=== PATIENT | male | born 1990 | race Caucasian/White ===

== ENCOUNTER → 2023-10-30 08:54 | Outpatient (REF) | payer MEDICARE, OTHER, MEDICAID, SELFPAY ==
[2023-10-30 10:05] VITALS: BP 137/98; BP_SYST 79
[2023-10-30 11:12] VITALS: BP 121/74
== END ==
LOC: RADI 08:54
PROVIDERS: ATTENDING PHYSICIAN Radiology Diagnostic Radiology
DX: Z43.1 Encounter for attention to gastrostomy (principal)
CPT/HCPCS: 49452; C1729; C1769

== ENCOUNTER → 2023-12-30 11:18 | Outpatient (REF) | payer MEDICARE, OTHER, MEDICAID, SELFPAY ==
[2023-12-30 11:58] LABS: Urine Albumin Negative (Neg - Trace); Urine Bilirubin Negative (Negative); Urine Character Slightly Cloudy (Clear); Urine Color Yellow; Urine Glucose Negative (Negative); Urine Ketone Negative (Negative); Urine Leukocyte 2+ (Negative); Urine Nitrite Negative (Negative); Urine Occult Blood Negative (Negative); Urine Specific Gravity 1.015 (<1.030); Urine Urobilinogen Negative (Neg - 1+)
[2023-12-30 12:07] LABS: Urine Mucus Few; Urine Red Blood Cell None Seen /HPF (0-2); Urine Triple Phosphate Crystal Present; Urine White Cell 0-2 /HPF (0-5)
== END ==
LOC: REG 11:18
PROVIDERS: ATTENDING PHYSICIAN Family Medicine
DX: R50.9 Fever, unspecified (principal)
CPT/HCPCS: 81003; 81015; 87086

== ENCOUNTER → 2024-06-02 11:16 | Outpatient (REF) | payer MEDICARE, OTHER, MEDICAID, SELFPAY | LOC: RADI 11:16 | PROVIDERS: ATTENDING PHYSICIAN Radiology Vascular & Interventional Radiology | DX: Z43.1 Encounter for attention to gastrostomy (principal) | CPT/HCPCS: 49452; C1769 ==

== ENCOUNTER → 2024-07-07 12:16 | Outpatient (REF) | payer MEDICARE, OTHER, MEDICAID, SELFPAY | LOC: RAD 12:16 | PROVIDERS: ATTENDING PHYSICIAN Family Medicine; REFERRING PHYSICIAN Internal Medicine Gastroenterology | DX: R74.8 Abnormal levels of other serum enzymes (principal) | CPT/HCPCS: 76700 ==

== ENCOUNTER 2024-11-11 22:10 | Inpatient (IN) | payer MEDICARE, OTHER, MEDICAID, SELFPAY ==
[2024-11-11] VITALS (7 sets, daily range): BP systolic 111–131; BP diastolic 60–83
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
[2024-11-11] MEDS: NSS 500 IV (19:32)
[2024-11-11 19:43] LABS: % Basophils 0.2 % (0-2); % Eosinophils 0.4 % (0-6); % Immature Granulocytes 0.4 % (0-0.5); % Lymphocytes 11.4 % (20.5-51.1); % Monocytes 7.8 % (1.7-9.3); % Neutrophils 79.8 % (42.2-75.2); Absolute Eosinophils 0.1 10^3/uL (0-0.7); Absolute Immature Granulocytes 0.1 10^3/uL (0-0.05); Absolute Lymphocytes 1.6 10^3/uL (1.2-3.4); Absolute Monocytes 1.1 10^3/uL (0.1-0.6); Hematocrit 50.1 % (39.0-52.0); Hemoglobin 16.3 g/dL (13.0-18.0); Mean Corp Hgb Conc. 32.5 g/dL (33.0-37.0); Mean Corpuscular Hgb 29.4 pg (27.0-31.0); Mean Corpuscular Volume 90.4 fL (80.0-94.0); Mean Platelet Volume 9.1 fL (7.4-10.4); Nucleated Red Blood Cells % 0 % (-); Platelet Count 228 10^3/uL (130-400); Red Blood Cell Count 5.54 10^6/uL (4.70-6.10); Red Cell Dist. Width 13.3 % (11.5-14.5); White Blood Cell Count 13.7 10^3/uL (4.8-10.8)
[2024-11-11 19:59] LABS: APTT 30.3 Sec (23.4-35.0); INR 0.98; PT 13.5 Sec (11.4-14.6)
[2024-11-11 20:00] LABS: COVID-19 Antigen Negative (Negative)
[2024-11-11 20:03] LABS: ALT (SGPT) 78 U/L (0-50); AST (SGOT) 44 U/L (17-59); Albumin 4.8 g/dl (3.5-5.0); Alkaline Phosphatase 105 U/L (38-126); Blood Urea Nitrogen 17 mg/dl (9-20); Calcium 9.4 mg/dl (8.4-10.2); Carbon Dioxide 25 mmol/L (22-30); Chloride 102 mmol/L (98-107); Glucose 85 mg/dl (70-99); Potassium 4.3 mmol/L (3.5-5.1); Sodium 139 mmol/L (135-145); Total Bilirubin 0.6 mg/dl (0.2-1.3); Total Protein 7.5 g/dl (6.3-8.2); eGFR > 60.00
[2024-11-11] MEDS: ROCEPHIN 1000 MG IV (21:22)
[2024-11-11] MEDS: TYLENOL/FEVERALL 650 MG RECTAL (21:38)
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
[2024-11-11] MEDS: VIBRAMYCIN 260 MG IV (21:42)
[2024-11-11 22:23] LABS: Procalcitonin < 0.05 ng/ml (0.0-0.25)
[2024-11-12] VITALS (22 sets, daily range): BP systolic 101–129; BP diastolic 56–87; BMI 24.8
[2024-11-12] MEDS: MYLICON DROPS 40 MG TUBE ×5 (01:03→22:31)
[2024-11-12] MEDS: MYLICON DROPS 60 MG TUBE ×8 (01:07→22:31)
[2024-11-12] MEDS: NON-FORMULARY ITEM 100 MG TUBE ×2 (01:08→14:15)
[2024-11-12] MEDS: XOPENEX 1.25 MG INHALANT SOLUTION INH (01:34)
[2024-11-12] MEDS: OFIRMEV 100 IV ×4 (01:52→22:28)
[2024-11-12] MEDS: ZOSYN 50 IV ×4 (04:23→22:43)
[2024-11-12] MEDS: VIMPAT 100 MG PO ×2 (04:24→19:47)
[2024-11-12] MEDS: NON-FORMULARY ITEM 200 MG TUBE ×2 (06:10→19:47)
[2024-11-12] MEDS: PREVACID 30 MG TUBE ×2 (06:14→19:48)
[2024-11-12 06:23] LABS: Hematocrit 43.7 % (39.0-52.0); Hemoglobin 14.8 g/dL (13.0-18.0); Mean Corp Hgb Conc. 33.9 g/dL (33.0-37.0); Mean Corpuscular Hgb 29.8 pg (27.0-31.0); Mean Corpuscular Volume 87.9 fL (80.0-94.0); Mean Platelet Volume 9.6 fL (7.4-10.4); Platelet Count 198 10^3/uL (130-400); Red Blood Cell Count 4.97 10^6/uL (4.70-6.10); Red Cell Dist. Width 13.7 % (11.5-14.5); White Blood Cell Count 15.2 10^3/uL (4.8-10.8)
[2024-11-12 07:00] LABS: ALT (SGPT) 57 U/L (0-50); AST (SGOT) 33 U/L (17-59); Albumin 4.3 g/dl (3.5-5.0); Alkaline Phosphatase 97 U/L (38-126); Blood Urea Nitrogen 17 mg/dl (9-20); Calcium 8.9 mg/dl (8.4-10.2); Carbon Dioxide 21 mmol/L (22-30); Chloride 104 mmol/L (98-107); Estimated Creatinine Clearance > 125 ml/min; Glucose 97 mg/dl (70-99); Potassium 3.5 mmol/L (3.5-5.1); Sodium 140 mmol/L (135-145); Total Bilirubin 0.9 mg/dl (0.2-1.3); Total Protein 6.6 g/dl (6.3-8.2); eGFR > 60.00
[2024-11-12] MEDS: NON-FORMULARY ITEM 250 MG TUBE ×2 (07:38→19:47)
[2024-11-12] MEDS: DAILY VITAMIN/CENTRUM 15 ML TUBE (07:38)
[2024-11-12] MEDS: VISBIOME 1 CAP TUBE (07:40)
[2024-11-12] MEDS: OSCAL 500 + D 500 MG TUBE (07:40)
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
[2024-11-12 09:35] LABS: Urine Albumin 3+ (Neg - Trace); Urine Bilirubin Negative (Negative); Urine Character Cloudy (Clear); Urine Color Yellow; Urine Glucose Negative (Negative); Urine Ketone Negative (Negative); Urine Leukocyte 3+ (Negative); Urine Nitrite Negative (Negative); Urine Occult Blood 1+ (Negative); Urine Urobilinogen Negative (Neg - 1+)
[2024-11-12 09:47] LABS: D-Dimer 0.37 ug/mlFEU (0.00-0.50)
[2024-11-12 10:32] LABS: Urine Bacteria Moderate (Negative); Urine White Cell 60-70 /HPF (0-5)
[2024-11-12 10:33] LABS: Urine Amorphous Seen
[2024-11-12 10:34] LABS: Urine Triple Phosphate Crystal Present
--- NOTE | 2024-11-12 10:42 | W.PN.UPDATE ---
Update Note
Progress Note Update
PVR 445 on bladder scan.
De Guzman will be ordered for acuter retention.
UA pending
[2024-11-12] MEDS: LR 1000 IV ×2 (11:01→20:05)
[2024-11-12] MEDS: DULCOLAX 10 MG RECTAL (15:38)
[2024-11-12] MEDS: OFIRMEV IV (19:46)
[2024-11-12] MEDS: ONFI 10 MG TUBE (19:48)
[2024-11-12] MEDS: LOVENOX 40 MG SC (19:48)
[2024-11-13] VITALS (12 sets, daily range): BP systolic 90–117; BP diastolic 50–73
[2024-11-13] MEDS: MYLICON DROPS 60 MG TUBE ×7 (00:32→20:00)
[2024-11-13] MEDS: NON-FORMULARY ITEM 100 MG TUBE ×2 (00:34→13:09)
--- NOTE | 2024-11-13 01:26 | PTCARENOTE ---
Patient transported to IMU by stretcher. ED RN gave report over the phone. Pt nonverbal. Pt appeared flushed and diaphoretic. Axillary temp 101.7, Tylenol administered see NOV. Pt having tremors b/l arms and legs. Mother bedside states 'this has
been a new thing the past few weeks'. NS/ST on tele. Pt remains on 9L MFNC SpO2 95%. Rhonchi, coarse, with scattered crackles of the lungs. Pt has a weak occasional moist cough. Oral suction to aid with management of secretions. Oral suction mouth
care kit used. CHG bath done. IV fluids cont. IV abx gtt. GJ tube irrigated as ordered, and redressed. VSS. Assessment and vitals as charted. Pt tolerating frequent turning and repositioning.
[2024-11-13] MEDS: LR 1000 IV ×3 (03:12→19:58)
[2024-11-13] MEDS: VIMPAT 100 MG PO ×2 (04:08→19:57)
[2024-11-13] MEDS: ZOSYN 50 IV ×4 (04:08→21:46)
[2024-11-13 05:23] LABS: % Basophils 0.3 % (0-2); % Eosinophils 0.2 % (0-6); % Immature Granulocytes 0.8 % (0-0.5); % Lymphocytes 14.2 % (20.5-51.1); % Monocytes 6.2 % (1.7-9.3); % Neutrophils 78.3 % (42.2-75.2); Absolute Basophils 0.1 10^3/uL (0-0.2); Absolute Immature Granulocytes 0.1 10^3/uL (0-0.05); Absolute Lymphocytes 2.4 10^3/uL (1.2-3.4); Absolute Monocytes 1.1 10^3/uL (0.1-0.6); Absolute Neutrophils 13.4 10^3/uL (1.4-6.5); Hematocrit 43.8 % (39.0-52.0); Hemoglobin 14.3 g/dL (13.0-18.0); Mean Corp Hgb Conc. 32.6 g/dL (33.0-37.0); Mean Corpuscular Hgb 29.5 pg (27.0-31.0); Mean Corpuscular Volume 90.5 fL (80.0-94.0); Mean Platelet Volume 9.8 fL (7.4-10.4); Nucleated Red Blood Cells % 0 % (-); Platelet Count 175 10^3/uL (130-400); Red Blood Cell Count 4.84 10^6/uL (4.70-6.10); Red Cell Dist. Width 14.2 % (11.5-14.5); White Blood Cell Count 17.2 10^3/uL (4.8-10.8)
[2024-11-13] MEDS: NON-FORMULARY ITEM 200 MG TUBE ×2 (05:26→17:43)
[2024-11-13] MEDS: PREVACID 30 MG TUBE ×2 (05:27→17:24)
[2024-11-13 05:41] LABS: Blood Urea Nitrogen 13 mg/dl (9-20); Calcium 8.6 mg/dl (8.4-10.2); Carbon Dioxide 25 mmol/L (22-30); Chloride 107 mmol/L (98-107); Estimated Creatinine Clearance > 125 ml/min; Glucose 78 mg/dl (70-99); Potassium 3.3 mmol/L (3.5-5.1); Sodium 140 mmol/L (135-145); eGFR > 60.00
[2024-11-13] MEDS: KCL ELIXIR 40 MEQ TUBE (06:33)
[2024-11-13] MEDS: NON-FORMULARY ITEM 250 MG TUBE ×2 (09:22→19:58)
[2024-11-13] MEDS: OSCAL 500 + D 500 MG TUBE (09:24)
[2024-11-13] MEDS: MYLICON DROPS TUBE ×2 (09:25→17:22)
[2024-11-13] MEDS: DAILY VITAMIN/CENTRUM 15 ML TUBE (09:26)
[2024-11-13] MEDS: VISBIOME 1 CAP TUBE (09:26)
[2024-11-13] MEDS: MYLICON DROPS 40 MG TUBE ×3 (13:10→21:47)
[2024-11-13] MEDS: DULCOLAX RECTAL (13:23)
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
[2024-11-13] MEDS: LOVENOX 40 MG SC (17:24)
--- NOTE | 2024-11-13 18:13 | PTCARENOTE ---
lactated rinhgers bolus ordered. discussed with hospitalist and not given as pts systolic bp has been above 100 throughout shift. christie output 1200mls for day shift. frequent mouth care provided with suction toothbrush. no seizure activity noted.
currently on 7 liters nasal o2 with sat 96. mother at bedside.
[2024-11-13] MEDS: ONFI 10 MG TUBE (19:53)
--- NOTE | 2024-11-13 23:31 | PTCARENOTE ---
Pt nonverbal, remains at baseline status. Pt running a low grade temperature. Pt bumped back up to 9L MFNC. Pt desatting to low 90s. Pt has a very weak cough. Oral suctioning as needed, pt had a moderate amount of nguyen white thick secretions. Oral
suction mouth care kit used. NS/ST on tele. IV fluids cont. IV abx cont. GJ tube irrigated as ordered. Meds via J tube. VSS. Assessment and vitals as charted. Pt tolerating frequent turning and repositioning.
[2024-11-14] VITALS (12 sets, daily range): BP systolic 93–118; BP diastolic 52–72; BMI 24.8
[2024-11-14] MEDS: MYLICON DROPS 60 MG TUBE ×8 (00:29→21:13)
[2024-11-14] MEDS: NON-FORMULARY ITEM 100 MG TUBE ×2 (00:30→12:23)
--- NOTE | 2024-11-14 01:30 | PTCARENOTE ---
While doing oral care this RN found build up brown mucus on roof of mouth, attempted to suction as much out as possible. Large amount of brown mucus suctioned from mouth. Pt able to cough up small amount of mucus.
[2024-11-14] MEDS: VIMPAT 100 MG PO ×2 (03:35→17:54)
[2024-11-14] MEDS: ZOSYN 50 IV ×4 (03:35→21:14)
[2024-11-14] MEDS: LR 1000 IV ×3 (04:07→17:48)
[2024-11-14 04:28] LABS: Hematocrit 38.7 % (39.0-52.0); Hemoglobin 12.5 g/dL (13.0-18.0); Mean Corp Hgb Conc. 32.3 g/dL (33.0-37.0); Mean Corpuscular Hgb 29.2 pg (27.0-31.0); Mean Corpuscular Volume 90.4 fL (80.0-94.0); Mean Platelet Volume 9.3 fL (7.4-10.4); Platelet Count 165 10^3/uL (130-400); Red Blood Cell Count 4.28 10^6/uL (4.70-6.10); Red Cell Dist. Width 14.2 % (11.5-14.5); White Blood Cell Count 11.4 10^3/uL (4.8-10.8)
[2024-11-14 04:56] LABS: ALT (SGPT) 35 U/L (0-50); AST (SGOT) 23 U/L (17-59); Albumin 3.1 g/dl (3.5-5.0); Alkaline Phosphatase 93 U/L (38-126); Blood Urea Nitrogen 7 mg/dl (9-20); Calcium 8.4 mg/dl (8.4-10.2); Carbon Dioxide 21 mmol/L (22-30); Chloride 107 mmol/L (98-107); Estimated Creatinine Clearance > 125 ml/min; Glucose 60 mg/dl (70-99); Potassium 3.3 mmol/L (3.5-5.1); Sodium 139 mmol/L (135-145); Total Bilirubin 0.8 mg/dl (0.2-1.3); Total Protein 5.4 g/dl (6.3-8.2); eGFR > 60.00
[2024-11-14] MEDS: NON-FORMULARY ITEM 200 MG TUBE ×2 (05:14→17:48)
[2024-11-14] MEDS: PREVACID 30 MG TUBE ×2 (05:17→17:50)
[2024-11-14] MEDS: KCL 270 MEQ IV (05:26)
[2024-11-14] MEDS: NON-FORMULARY ITEM 250 MG TUBE ×2 (07:19→19:05)
[2024-11-14] MEDS: VISBIOME 1 CAP TUBE (08:16)
[2024-11-14] MEDS: DAILY VITAMIN/CENTRUM 15 ML TUBE (08:16)
[2024-11-14] MEDS: OSCAL 500 + D 500 MG TUBE (08:16)
[2024-11-14] MEDS: MYLICON DROPS 40 MG TUBE ×4 (08:16→21:14)
--- NOTE | 2024-11-14 10:29 | CM ---
Patient with Hx Anoxic encephalopathy/functional quadriplegia, Cerebral palsy, Chronic dysphagia, GJ tube. O2 6L. Receiving IVF, IV Abx. Per nurse assessment; non-verbal.
Met with patient who was sleeping.
Spoke with patient's father Rd (cell [phone]);
the patient resides with his parents in a single level home w/ ramp to enter.
House is w/c accessible.
Patient is non-verbal and requires total care.
Patient has [facility] caregivers 7 days/week; some days 6-8 hrs/day, some days up to 10-12, some days overnight.
DME includes: hospital bed, wheelchair, siobhan lift, suction machine, pump for enteral feeds.
oxygen concentrator/portable tanks (tanks go up to 5L)- father doesn't know O2 provider.
[facility] in the past- father does not feel this needs to be resumed at d/c
Currently getting outpatient PT.
The patient is transported in the family van.
Plan watch for home O2 needs.
Plan home with resumption [facility] caregivers.
--- NOTE | 2024-11-14 11:29 | PTCARENOTE ---
Rec'd pt this AM. Discussed with Dr. Edwards pt has not TF orders. Radio Board Operator did see pt on 11/12. Sent TT and left voicemail at Radio Board Operator's office to inquire about starting tube feeding.
--- NOTE | 2024-11-14 14:12 | PTCARENOTE ---
Mother brought in home tube feeds. Placed in room. Family requesting vest therapy as pt utilizes this at home. RN notiifed Dr. Edwards
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
[2024-11-14] MEDS: DULCOLAX 10 MG RECTAL (15:11)
--- NOTE | 2024-11-14 16:55 | PTCARENOTE ---
Started pt's TF. slow with titration. Mom requests IVF continue until TF at goal. Notified Dr. Edwards. IVF re-ordered. Pt resting comfortable.
[2024-11-14] MEDS: LOVENOX 40 MG SC (17:49)
[2024-11-14] MEDS: ONFI 10 MG TUBE (17:50)
[2024-11-15] VITALS (13 sets, daily range): BP systolic 74–122; BP diastolic 27–73
[2024-11-15] MEDS: MYLICON DROPS 60 MG TUBE ×9 (00:54→21:45)
[2024-11-15] MEDS: NON-FORMULARY ITEM 100 MG TUBE ×2 (00:54→13:04)
--- NOTE | 2024-11-15 01:48 | PTCARENOTE ---
Pt nonverbal and remains at baseline neuro status, pt making infrequent noises. Pt on 6L NC SpO2 97% will continue to wean. RT bedside to place patient on the respiratory vest therapy. Oral suctioned moderate amounts of secretions. Pt able to cough
up small amount. Pt has a weak cough. Oral care done frequently. Complete bed bath and all linens changed. TF increased to 35ml/hr, pt seems to be tolerating. Pt had moderate formed BM. IVF cont. IV abx cont. NSR on tele. VSS. Afebrile. Pt
tolerating frequent turning and repositioning.
[2024-11-15] MEDS: ZOSYN 50 IV ×4 (04:32→21:35)
[2024-11-15] MEDS: VIMPAT 100 MG PO ×2 (04:38→17:59)
[2024-11-15 04:54] LABS: Hematocrit 40.6 % (39.0-52.0); Hemoglobin 13.5 g/dL (13.0-18.0); Mean Corp Hgb Conc. 33.3 g/dL (33.0-37.0); Mean Corpuscular Hgb 29.8 pg (27.0-31.0); Mean Corpuscular Volume 89.6 fL (80.0-94.0); Mean Platelet Volume 9.4 fL (7.4-10.4); Platelet Count 176 10^3/uL (130-400); Red Blood Cell Count 4.53 10^6/uL (4.70-6.10); Red Cell Dist. Width 14.2 % (11.5-14.5)
[2024-11-15 05:21] LABS: ALT (SGPT) 37 U/L (0-50); AST (SGOT) 24 U/L (17-59); Albumin 3.2 g/dl (3.5-5.0); Alkaline Phosphatase 97 U/L (38-126); Blood Urea Nitrogen 3 mg/dl (9-20); Calcium 8.7 mg/dl (8.4-10.2); Carbon Dioxide 24 mmol/L (22-30); Chloride 111 mmol/L (98-107); Estimated Creatinine Clearance > 125 ml/min; Glucose 121 mg/dl (70-99); Potassium 3.4 mmol/L (3.5-5.1); Sodium 142 mmol/L (135-145); Total Bilirubin 0.6 mg/dl (0.2-1.3); Total Protein 5.6 g/dl (6.3-8.2); eGFR > 60.00
[2024-11-15] MEDS: NON-FORMULARY ITEM 200 MG TUBE ×2 (05:58→17:55)
[2024-11-15] MEDS: PREVACID 30 MG TUBE ×2 (06:00→17:56)
[2024-11-15] MEDS: NON-FORMULARY ITEM 250 MG TUBE ×2 (06:19→18:00)
[2024-11-15] MEDS: LR 1000 IV ×2 (06:19→21:35)
[2024-11-15] MEDS: VISBIOME 1 CAP TUBE (08:03)
[2024-11-15] MEDS: DAILY VITAMIN/CENTRUM 15 ML TUBE (08:03)
[2024-11-15] MEDS: OSCAL 500 + D 500 MG TUBE (08:04)
[2024-11-15] MEDS: MYLICON DROPS 40 MG TUBE ×4 (08:05→21:36)
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
[2024-11-15] MEDS: KCL ELIXIR 40 MEQ TUBE (11:24)
[2024-11-15] MEDS: DULCOLAX 10 MG RECTAL (15:27)
--- NOTE | 2024-11-15 15:43 | PTCARENOTE ---
Recd pt this AM. Unable to void after christie removal this AM. Christie re-placed per order this afternoon. Mom and/or Dad at bedside throughout shift. Vital signs stable on 4L NC. Pt arousing more today. Appears comfortable
[2024-11-15] MEDS: XOPENEX 1.25 MG INHALANT SOLUTION INH (17:17)
[2024-11-15] MEDS: LOVENOX 40 MG SC (17:56)
[2024-11-15] MEDS: ONFI 10 MG TUBE (18:05)
--- NOTE | 2024-11-15 18:33 | PTCARENOTE ---
"Pt had a change in clinical presentation with desaturation on 4L to 88%, tachypnic with RR in 20s. Notified RT, vest therapy and neb treatment given with no improvement. Suction by RT resulted in minimal improvement. Notified Dr. Humphreys and "Darwin who is cross cover. stat chest X ray ordered, tube feeds to be held in case of aspiration. Pt now improved to 97% but remains on 8L NC. "
--- NOTE | 2024-11-15 23:33 | PTCARENOTE ---
Patient is nonverbal, contracted and bilateral foot drop. 6L mdflow, continuing to wean. tube feeds on hold. christie care given. LR running at 75. Mother at bedside. Assessment and vital signs as documented.
[2024-11-16] VITALS (11 sets, daily range): BP systolic 99–120; BP diastolic 55–77
[2024-11-16] MEDS: NON-FORMULARY ITEM 100 MG TUBE ×3 (00:36→23:52)
[2024-11-16] MEDS: MYLICON DROPS 60 MG TUBE ×8 (03:17→23:52)
[2024-11-16] MEDS: VIMPAT 100 MG PO (03:17)
[2024-11-16] MEDS: ZOSYN 50 IV ×4 (03:17→20:45)
[2024-11-16 05:25] LABS: % Basophils 0.7 % (0-2); % Eosinophils 2.4 % (0-6); % Immature Granulocytes 0.3 % (0-0.5); % Lymphocytes 38.5 % (20.5-51.1); % Neutrophils 47.1 % (42.2-75.2); Absolute Eosinophils 0.1 10^3/uL (0-0.7); Absolute Lymphocytes 2.2 10^3/uL (1.2-3.4); Absolute Monocytes 0.6 10^3/uL (0.1-0.6); Absolute Neutrophils 2.7 10^3/uL (1.4-6.5); Hematocrit 38.1 % (39.0-52.0); Hemoglobin 12.5 g/dL (13.0-18.0); Mean Corp Hgb Conc. 32.8 g/dL (33.0-37.0); Mean Corpuscular Hgb 29.3 pg (27.0-31.0); Mean Corpuscular Volume 89.4 fL (80.0-94.0); Mean Platelet Volume 9.4 fL (7.4-10.4); Nucleated Red Blood Cells % 0 % (-); Platelet Count 193 10^3/uL (130-400); Red Blood Cell Count 4.26 10^6/uL (4.70-6.10); Red Cell Dist. Width 14.5 % (11.5-14.5); White Blood Cell Count 5.7 10^3/uL (4.8-10.8)
[2024-11-16] MEDS: NON-FORMULARY ITEM 200 MG TUBE (05:36)
[2024-11-16] MEDS: PREVACID 30 MG TUBE ×2 (05:37→18:20)
[2024-11-16 05:44] LABS: ALT (SGPT) 44 U/L (0-50); AST (SGOT) 30 U/L (17-59); Alkaline Phosphatase 92 U/L (38-126); Blood Urea Nitrogen 4 mg/dl (9-20); Calcium 8.8 mg/dl (8.4-10.2); Carbon Dioxide 24 mmol/L (22-30); Chloride 111 mmol/L (98-107); Estimated Creatinine Clearance > 125 ml/min; Glucose 90 mg/dl (70-99); Potassium 3.7 mmol/L (3.5-5.1); Sodium 142 mmol/L (135-145); Total Bilirubin 0.7 mg/dl (0.2-1.3); Total Protein 5.4 g/dl (6.3-8.2); eGFR > 60.00
[2024-11-16] MEDS: NON-FORMULARY ITEM 250 MG TUBE ×2 (08:03→18:20)
[2024-11-16] MEDS: VISBIOME 1 CAP TUBE (10:02)
[2024-11-16] MEDS: OSCAL 500 + D 500 MG TUBE (10:02)
[2024-11-16] MEDS: MYLICON DROPS 40 MG TUBE ×2 (10:03→20:45)
[2024-11-16] MEDS: DAILY VITAMIN/CENTRUM 15 ML TUBE (10:03)
--- NOTE | 2024-11-16 12:20 | PTCARENOTE ---
Tele alarmed pox 77%- had weaned NC down to 3L earlier has had sao2 92-94% until now- pt was dusky - non verbal (unchanged) NRB mask placed pt recovered quickly NRB mask removed with in 15 min. Oral care completed x3 already this am for dry mouth -
unable to expecorate secretions on own.
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
[2024-11-16 14:54] LABS: B.E. 0 mmol/L; HCO3 25.4 mmol/L (21-28); O2 Saturation % 99.8 % (94-98); PCO2 43 mmHg (35-48); PO2 151 mmHg (83-108); pH 7.38 (7.35-7.45)
[2024-11-16] MEDS: DULCOLAX 10 MG RECTAL (15:40)
[2024-11-16] MEDS: MYLICON DROPS TUBE ×2 (15:40→18:17)
--- NOTE | 2024-11-16 16:06 | W.PN.UPDATE ---
Update Note
Progress Note Update
Spoke to pateint's neurologist Dr. Josefina Christie. Based on the report titration to Xcopri 200 mg twice daily was held as per latest communication with patient's mother. It is unclear whether samples were provided. Dr. Lepe stop Vimpat
and consider reduction of Onfi tomorrow in the morning if the patient continues to be lethargic.
Dr. Foote
--- NOTE | 2024-11-16 16:29 | EEG.RPT ---
Electroencephalogram Report
Recording
Date of EE11/16/24
Type of EEG: Routine
Length of EEG recordin minutes
Done with Video Recording: Yes
Patient Status: Inpatient
Recording Conditions: Awake and Drowsy
Hyperventilation Performed: No
Photic Stimulation Performed: Yes
Report
LESS THAN 1 HOUR EEG REPORT
LESS THAN 1 HOUR EEG INTERPRETATION:
Severely abnormal EEG for age due to frequent high amplitude spike and polyspike-wave discharges in all stages of consciousness
CLINICAL CORRELATION:
This study was suggestive of frequent subclinical seizures appearing to be generalized in nature.
Clinical correlation is advised.
METHODS:
A 21 channel digitized electroencephalogram (EEG) was performed in the Clinical Neurophysiology Laboratory. The 10/20 international system of electrode placement was used with ECG and lateral/vertical eye movements recorded. Video was recorded.
Persyst quantitative EEG analysis was performed.
ELECTROENCEPHALOGRAPHER IMPRESSION(S):
Quality of study: Good
Background
Maximal: delta frequency
Anterior-posterior gradient: good
Sleep
Drowsiness demonstrated by attenuation of the background rhythm
Photic Stimulation
Failed to activate the record
ECG
Normal sinus rhythm
ABNORMAL EEG Activity
Frequently were medium-high amplitude spike and poly-spike and wave discharges, generalizing.
--- NOTE | 2024-11-16 17:02 | CM ---
Patient with Hx Anoxic encephalopathy/functional quadriplegia, Cerebral palsy, Chronic dysphagia, GJ tube. O2 3L. PEG tube feeds. Receiving IV Abx. EEG today. Per nurse assessment; drowsy, non-verbal.
The patient is transported in the family van.
Plan watch for home O2 needs.
Plan home with resumption [facility] caregivers.
[2024-11-16 17:26] LABS: Creatine Phosphokinase 31 U/L (55-170)
[2024-11-16 17:27] LABS: Ammonia 52 umol/L (9-30)
[2024-11-16] MEDS: LOVENOX 40 MG SC (18:17)
[2024-11-16] MEDS: NON-FORMULARY ITEM 1 MG TUBE (18:18)
[2024-11-16] MEDS: ONFI 10 MG TUBE (18:20)
--- NOTE | 2024-11-16 18:42 | PTCARENOTE ---
Tube feeding restarted gradually increased currently at 60/ 25 ml WF goal is 75ml/hr per RD note. Eyes open at times, non verbal, smiles on occasion. Turning q2. All tubing off pt. Gab good output. +BM today. Failed O2 wean today remains
on6L NC.
[2024-11-17] VITALS (12 sets, daily range): BP systolic 91–111; BP diastolic 52–68
[2024-11-17] MEDS: MYLICON DROPS 60 MG TUBE ×7 (03:19→21:10)
[2024-11-17] MEDS: ZOSYN 50 IV ×4 (03:19→23:00)
[2024-11-17 04:22] LABS: Hematocrit 38.5 % (39.0-52.0); Hemoglobin 12.9 g/dL (13.0-18.0); Mean Corp Hgb Conc. 33.5 g/dL (33.0-37.0); Mean Corpuscular Volume 89.5 fL (80.0-94.0); Mean Platelet Volume 9.4 fL (7.4-10.4); Platelet Count 208 10^3/uL (130-400); Red Cell Dist. Width 14.5 % (11.5-14.5); White Blood Cell Count 6.1 10^3/uL (4.8-10.8)
[2024-11-17 04:56] LABS: ALT (SGPT) 59 U/L (0-50); AST (SGOT) 41 U/L (17-59); Albumin 3.2 g/dl (3.5-5.0); Alkaline Phosphatase 95 U/L (38-126); Blood Urea Nitrogen 6 mg/dl (9-20); Calcium 8.7 mg/dl (8.4-10.2); Carbon Dioxide 26 mmol/L (22-30); Chloride 111 mmol/L (98-107); Estimated Creatinine Clearance > 125 ml/min; Glucose 90 mg/dl (70-99); Potassium 3.8 mmol/L (3.5-5.1); Sodium 142 mmol/L (135-145); Total Bilirubin 0.5 mg/dl (0.2-1.3); Total Protein 5.6 g/dl (6.3-8.2); eGFR > 60.00
[2024-11-17] MEDS: PREVACID 30 MG TUBE ×2 (05:32→17:44)
[2024-11-17] MEDS: NON-FORMULARY ITEM 200 MG TUBE ×2 (05:32→17:41)
[2024-11-17] MEDS: NON-FORMULARY ITEM 250 MG TUBE ×2 (05:33→17:45)
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
[2024-11-17] MEDS: OSCAL 500 + D 500 MG TUBE (09:32)
[2024-11-17] MEDS: DAILY VITAMIN/CENTRUM 15 ML TUBE (09:32)
[2024-11-17] MEDS: VISBIOME 1 CAP TUBE (09:33)
[2024-11-17] MEDS: MYLICON DROPS TUBE ×4 (09:33→21:38)
[2024-11-17] MEDS: ROBITUSSIN 100 MG TUBE ×3 (12:23→22:59)
[2024-11-17] MEDS: NON-FORMULARY ITEM 100 MG TUBE (12:31)
[2024-11-17] MEDS: XOPENEX 1.25 MG INHALANT SOLUTION INH ×2 (13:53→18:10)
[2024-11-17 14:48] LABS: Ammonia 69 umol/L (9-30)
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
[2024-11-17] MEDS: DULCOLAX 10 MG RECTAL (15:58)
[2024-11-17] MEDS: DUPHALAC/CHRONULAC 20 GRAMS TUBE ×2 (16:10→22:59)
[2024-11-17] MEDS: LOVENOX 40 MG SC (17:44)
[2024-11-17] MEDS: ONFI 10 MG TUBE (17:44)
--- NOTE | 2024-11-17 18:35 | PTCARENOTE ---
Was awake, smiling this am - this pm pt more somnolent- BP 90s/50s. NH3 and current status relayed to Dr. Humphreys. Lactulose ordered and received. Tube feedings changed to 24 hour continuous mode. US abd ordered- dept notified of change in
status prefer bedside study (O2, BP, lethargic) and also of when to place tube feeding on hold - mother mentioned today that tube is currently on J tube. De Guzman with adequate output. No stool yet despite dulcolax pr this pm (scheduled dose).
Turning q 2.
--- NOTE | 2024-11-17 19:50 | PTCARENOTE ---
Assumed care of patient at change of shift. Pt nonverbal and drowsy. Pt's mom at bedside, pt opened eyes and smiled when his mom spoke to him. NSR on monitor. 94% on 5L NC. TF infusing. Christie in place draining yellow urine. Pt had a BM. hygiene
completed including christie care and complete bed change.
[2024-11-18] VITALS (15 sets, daily range): BP systolic 92–122; BP diastolic 54–73
[2024-11-18] MEDS: MYLICON DROPS 60 MG TUBE ×7 (00:50→19:56)
[2024-11-18] MEDS: NON-FORMULARY ITEM 100 MG TUBE ×2 (00:51→14:52)
[2024-11-18] MEDS: ZOSYN 50 IV ×4 (03:16→22:55)
[2024-11-18 03:52] LABS: Hematocrit 40.7 % (39.0-52.0); Hemoglobin 13.6 g/dL (13.0-18.0); Mean Corp Hgb Conc. 33.4 g/dL (33.0-37.0); Mean Corpuscular Hgb 29.6 pg (27.0-31.0); Mean Corpuscular Volume 88.7 fL (80.0-94.0); Mean Platelet Volume 9.4 fL (7.4-10.4); Platelet Count 212 10^3/uL (130-400); Red Blood Cell Count 4.59 10^6/uL (4.70-6.10); Red Cell Dist. Width 14.5 % (11.5-14.5); White Blood Cell Count 7.2 10^3/uL (4.8-10.8)
[2024-11-18 04:00] LABS: Ammonia 49 umol/L (9-30)
[2024-11-18 04:04] LABS: ALT (SGPT) 68 U/L (0-50); AST (SGOT) 38 U/L (17-59); Albumin 3.8 g/dl (3.5-5.0); Alkaline Phosphatase 86 U/L (38-126); Blood Urea Nitrogen 6 mg/dl (9-20); Calcium 8.8 mg/dl (8.4-10.2); Carbon Dioxide 23 mmol/L (22-30); Chloride 110 mmol/L (98-107); Estimated Creatinine Clearance > 125 ml/min; Glucose 94 mg/dl (70-99); Potassium 3.7 mmol/L (3.5-5.1); Sodium 142 mmol/L (135-145); Total Bilirubin 0.7 mg/dl (0.2-1.3); Total Protein 6.4 g/dl (6.3-8.2); eGFR > 60.00
[2024-11-18] MEDS: NON-FORMULARY ITEM 200 MG TUBE ×2 (05:51→17:35)
[2024-11-18] MEDS: PREVACID 30 MG TUBE ×2 (05:51→17:40)
--- NOTE | 2024-11-18 06:30 | PTCARENOTE ---
US completed. BELLO meds given and TF resumed. De Guzman removed and voiding trial stated at 0615
[2024-11-18] MEDS: XOPENEX 1.25 MG INHALANT SOLUTION INH ×3 (07:37→19:13)
[2024-11-18] MEDS: NON-FORMULARY ITEM 250 MG TUBE ×2 (08:57→19:55)
[2024-11-18] MEDS: ROBITUSSIN 100 MG TUBE ×4 (09:02→22:55)
[2024-11-18] MEDS: DUPHALAC/CHRONULAC 20 GRAMS TUBE ×3 (09:02→22:55)
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
[2024-11-18] MEDS: DAILY VITAMIN/CENTRUM 15 ML TUBE (09:03)
[2024-11-18] MEDS: MYLICON DROPS 40 MG TUBE (09:05)
[2024-11-18] MEDS: OSCAL 500 + D 500 MG TUBE (09:07)
[2024-11-18] MEDS: VISBIOME 1 CAP TUBE (09:24)
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
[2024-11-18] MEDS: MYLICON DROPS TUBE ×4 (14:45→21:41)
[2024-11-18] MEDS: DULCOLAX RECTAL (14:53)
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
--- NOTE | 2024-11-18 16:15 | CM ---
Addendum entered by Felicita Young RN 11/18/24 16:26:
Additionally, PEG tube feeds.
Original Note:
Patient with Hx Anoxic encephalopathy/functional quadriplegia, Cerebral palsy, Chronic dysphagia, GJ tube. O2 4L. De Guzman removed - voiding trial. Receiving IV Abx. Per nurse assessment; non-verbal.
The patient is transported in the family van.
Plan watch for home O2 needs.
Plan home with resumption [facility] caregivers.
[2024-11-18] MEDS: LOVENOX 40 MG SC (17:38)
[2024-11-18] MEDS: ONFI 10 MG TUBE (17:39)
[2024-11-19] VITALS (12 sets, daily range): BP systolic 103–120; BP diastolic 61–89
[2024-11-19] MEDS: MYLICON DROPS 60 MG TUBE ×8 (00:55→20:48)
[2024-11-19] MEDS: NON-FORMULARY ITEM 100 MG TUBE ×3 (00:55→12:36)
[2024-11-19] MEDS: ZOSYN 50 IV ×4 (04:09→23:05)
[2024-11-19 04:39] LABS: % Basophils 0.3 % (0-2); % Eosinophils 2.4 % (0-6); % Immature Granulocytes 0.9 % (0-0.5); % Monocytes 7.3 % (1.7-9.3); % Neutrophils 61.1 % (42.2-75.2); Absolute Eosinophils 0.1 10^3/uL (0-0.7); Absolute Immature Granulocytes 0.1 10^3/uL (0-0.05); Absolute Lymphocytes 1.6 10^3/uL (1.2-3.4); Absolute Monocytes 0.4 10^3/uL (0.1-0.6); Absolute Neutrophils 3.5 10^3/uL (1.4-6.5); Ammonia 47 umol/L (9-30); Hematocrit 41.8 % (39.0-52.0); Hemoglobin 13.6 g/dL (13.0-18.0); Mean Corp Hgb Conc. 32.5 g/dL (33.0-37.0); Mean Corpuscular Hgb 29.2 pg (27.0-31.0); Mean Corpuscular Volume 89.7 fL (80.0-94.0); Mean Platelet Volume 9.4 fL (7.4-10.4); Nucleated Red Blood Cells % 0 % (-); Platelet Count 235 10^3/uL (130-400); Red Blood Cell Count 4.66 10^6/uL (4.70-6.10); Red Cell Dist. Width 14.3 % (11.5-14.5); White Blood Cell Count 5.7 10^3/uL (4.8-10.8)
[2024-11-19 05:04] LABS: ALT (SGPT) 68 U/L (0-50); AST (SGOT) 37 U/L (17-59); Albumin 3.6 g/dl (3.5-5.0); Alkaline Phosphatase 83 U/L (38-126); Blood Urea Nitrogen 5 mg/dl (9-20); Carbon Dioxide 23 mmol/L (22-30); Chloride 110 mmol/L (98-107); Estimated Creatinine Clearance > 125 ml/min; Glucose 138 mg/dl (70-99); Potassium 3.9 mmol/L (3.5-5.1); Sodium 141 mmol/L (135-145); Total Bilirubin 0.3 mg/dl (0.2-1.3); Total Protein 6.3 g/dl (6.3-8.2); eGFR > 60.00
[2024-11-19] MEDS: PREVACID 30 MG TUBE ×2 (05:13→17:35)
[2024-11-19] MEDS: NON-FORMULARY ITEM 200 MG TUBE ×2 (05:13→17:36)
[2024-11-19] MEDS: XOPENEX 1.25 MG INHALANT SOLUTION INH ×3 (07:34→19:43)
[2024-11-19] MEDS: ROBITUSSIN 100 MG TUBE ×4 (07:57→23:05)
[2024-11-19] MEDS: VISBIOME 1 CAP TUBE (07:57)
[2024-11-19] MEDS: OSCAL 500 + D 500 MG TUBE (07:57)
[2024-11-19] MEDS: DAILY VITAMIN/CENTRUM 15 ML TUBE (07:57)
[2024-11-19] MEDS: DUPHALAC/CHRONULAC 20 GRAMS TUBE ×3 (07:57→23:05)
[2024-11-19] MEDS: MYLICON DROPS TUBE ×2 (07:58→14:09)
[2024-11-19] MEDS: MYLICON DROPS 40 MG TUBE (08:15)
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
--- NOTE | 2024-11-19 09:59 | PTCARENOTE ---
Assumed care of patient at nm;[place] rounds. Pt is non verbal, arouses to stimuli with Eye opening and occasional smile. Received pt on 5L Nc with pulse ox at 98%, currently weaned to 3.5Lnc with pulse ox at 94%. Father is at bedside, he anxious to
have pt discharged. Tube feeds infusing. Pt saturated with urine, full bed bath provided. Pt rigid and spastic with care, spasticity subsides when undisturbed. No purposeful movement which is pt baseline. Sinus Rhythm on monitor, oral care
provided, turned
--- NOTE | 2024-11-19 10:52 | PTCARENOTE ---
electronics technician apprentice at bedside, explained plan of care to pt's Mother who is at bedside at this time. Percussion interrupted to allow for EEG
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
--- NOTE | 2024-11-19 14:02 | EEG.RPT ---
Electroencephalogram Report
Recording
Date of EE11/19/24
Type of EEG: Routine
Length of EEG recordin minutes
Done with Video Recording: Yes
Patient Status: Inpatient
Recording Conditions: Awake and Drowsy
Hyperventilation Performed: No
Photic Stimulation Performed: Yes
Report
LESS THAN 1 HOUR EEG REPORT
LESS THAN 1 HOUR EEG INTERPRETATION:
Severely abnormal EEG for age due to frequent high amplitude 2 Hz spike and wave discharges in all stages of consciousness
CLINICAL CORRELATION:
This study was suggestive of frequent subclinical seizures appearing to be generalized in nature. There was a mild improvement from the previous study in that the number of discharges has been minimally reduced.
Clinical correlation is advised.
METHODS:
A 21 channel digitized electroencephalogram (EEG) was performed in the ICU. The 10/20 international system of electrode placement was used with ECG and lateral/vertical eye movements recorded. Video was recorded. Persyst quantitative EEG analysis
was performed.
ELECTROENCEPHALOGRAPHER IMPRESSION(S):
Quality of study: Good
Background
Maximal: delta frequency
Anterior-posterior gradient: poor
Sleep
Drowsiness demonstrated by attenuation of the background rhythm
Photic Stimulation
Failed to activate the record
ECG
Normal sinus rhythm
ABNORMAL EEG Activity
Frequently were medium-high amplitude spike and poly-spike and wave discharges, generalizing.
[2024-11-19] MEDS: DULCOLAX 10 MG RECTAL (14:51)
--- NOTE | 2024-11-19 15:16 | CM ---
Addendum entered by Felicita Young RN 11/19/24 15:42:
IMM completed.
Original Note:
Patient with Hx Anoxic encephalopathy/functional quadriplegia, Cerebral palsy, Chronic dysphagia, GJ tube. EEG today. O2 3L midflow. Receiving IV Abx. Per nurse assessment; drowsy, non-verbal.
Request received from Dr Varela to assist mother with home O2 needs, she may need portable O2 tanks.
Met with patient & mother;
patient currently has home O2 concentrator that was purchased, and mother did not know through which DME company.
Mother aware that [facility] will contact her about delivery new concentrator and portable tanks.
Spoke with [facility]; the patient purchased the O2 concentrator 07/19/22, and had a one year service warranty. They have not been providing service for this equipment.
Spoke with Selvin Nicholson; referral sent via [employer]. She will contact mother for agreement to return the old concentrator, so new concentrator and portable tanks can be delivered. She will need O2 testing and script when closer to discharge.
Spoke with Lashell Ulrich, Clinical Rewards Consultant [facility] [place] [facility] (cell [phone], fax [phone]); provided update that patient is not medically ready for d/c today and d/c date is unknown at this time. Lashell will not staff
caregivers to resume tomorrow. The weekend ph # [phone] to their office.
The patient is transported in the family van.
Plan watch for home O2 needs & home O2 assessment and fax O2 script to [facility].
Plan home with resumption [facility] caregivers, with O2 setup, with family via their van.
[2024-11-19] MEDS: FLUSH (NSS) 1 FLUSH IV (15:47)
[2024-11-19] MEDS: LOVENOX 40 MG SC (17:35)
[2024-11-19] MEDS: ONFI 10 MG TUBE (17:35)
[2024-11-19] MEDS: NON-FORMULARY ITEM 250 MG TUBE (20:48)
[2024-11-20] VITALS (12 sets, daily range): BP systolic 103–122; BP diastolic 57–76
[2024-11-20] MEDS: NON-FORMULARY ITEM 100 MG TUBE ×2 (01:04→12:53)
[2024-11-20] MEDS: MYLICON DROPS 60 MG TUBE ×8 (01:04→20:14)
--- NOTE | 2024-11-20 01:28 | PTCARENOTE ---
Pt is non-verbal at baseline. Pt opens eyes and arouses to stimuli. Occasional noises and smiling. Pt on 3L NC, SpO2 95%. TF running with home tube feed solution. Automatic flush plus manual flushes of the tube. Pt incontinent of urine, attempting
the condom cath #21. Bladder scanned pt for 264 ml, pt then voided 400ml. Pt had one loose BM. Full bed bath given. Oral care done frequently with oral care suction kit see worklist. NSR on tele. IV abx cont. Meds through J tube. Pt tolerating
frequent turning and repositioning.
[2024-11-20] MEDS: ZOSYN 50 IV ×4 (04:28→22:05)
--- NOTE | 2024-11-20 05:57 | PTCARENOTE ---
Patient with decreased urine output. Bladder scanned for 519ml and straight catheterized as per order see worklist. Attempting a CC #25 normal.
[2024-11-20 06:01] LABS: % Basophils 0.6 % (0-2); % Eosinophils 3.7 % (0-6); % Immature Granulocytes 0.9 % (0-0.5); % Lymphocytes 43.5 % (20.5-51.1); % Neutrophils 41.3 % (42.2-75.2); Absolute Eosinophils 0.2 10^3/uL (0-0.7); Absolute Monocytes 0.5 10^3/uL (0.1-0.6); Absolute Neutrophils 1.9 10^3/uL (1.4-6.5); Hematocrit 40.9 % (39.0-52.0); Hemoglobin 13.3 g/dL (13.0-18.0); Mean Corp Hgb Conc. 32.5 g/dL (33.0-37.0); Mean Corpuscular Hgb 29.2 pg (27.0-31.0); Mean Corpuscular Volume 89.7 fL (80.0-94.0); Mean Platelet Volume 9.6 fL (7.4-10.4); Nucleated Red Blood Cells % 0 % (-); Platelet Count 244 10^3/uL (130-400); Red Blood Cell Count 4.56 10^6/uL (4.70-6.10); Red Cell Dist. Width 14.4 % (11.5-14.5); White Blood Cell Count 4.6 10^3/uL (4.8-10.8)
[2024-11-20] MEDS: PREVACID 30 MG TUBE ×2 (06:04→19:32)
[2024-11-20] MEDS: NON-FORMULARY ITEM 200 MG TUBE ×2 (06:04→17:31)
[2024-11-20] MEDS: NON-FORMULARY ITEM 250 MG TUBE ×2 (06:05→20:14)
[2024-11-20 06:09] LABS: Blood Urea Nitrogen 6 mg/dl (9-20); Calcium 9.1 mg/dl (8.4-10.2); Carbon Dioxide 23 mmol/L (22-30); Chloride 106 mmol/L (98-107); Estimated Creatinine Clearance > 125 ml/min; Glucose 97 mg/dl (70-99); Potassium 4.1 mmol/L (3.5-5.1); Sodium 140 mmol/L (135-145); eGFR > 60.00
[2024-11-20] MEDS: OSCAL 500 + D 500 MG TUBE (07:47)
[2024-11-20] MEDS: DAILY VITAMIN/CENTRUM 15 ML TUBE (07:47)
[2024-11-20] MEDS: VISBIOME 1 CAP TUBE (07:47)
[2024-11-20] MEDS: ROBITUSSIN 100 MG TUBE ×4 (07:47→22:05)
[2024-11-20] MEDS: DUPHALAC/CHRONULAC 20 GRAMS TUBE ×3 (07:47→22:05)
[2024-11-20] MEDS: XOPENEX 1.25 MG INHALANT SOLUTION INH ×3 (07:47→19:44)
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
[2024-11-20] MEDS: FLUSH (NSS) 2 FLUSH IV (11:20)
--- NOTE | 2024-11-20 12:14 | PTCARENOTE ---
Condom catheter in place. Pt voided clear yellow urine while staff present and PVR scan is 78
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
[2024-11-20] MEDS: DULCOLAX 10 MG RECTAL (16:27)
[2024-11-20] MEDS: ONFI 10 MG TUBE (17:29)
[2024-11-20] MEDS: LOVENOX 40 MG SC (17:33)
--- NOTE | 2024-11-20 22:37 | PTCARENOTE ---
Pt remains at baseline neuro status. Pt remains on 3L NC. RT bedside for vest therapy and neb. Pt had an episode of apnea for a few seconds and desat to 75% SpO2. Pt had a weak wet cough. Sat pt up and oral suctioned patient for thick white sputum.
Pt quickly recovered. SpO2 now 95%. Oral care done. Pt had one incontinent large loose BM full bed change and hygiene. CC #25 replaced. Mother at the bedside. Pt tolerating frequent turning and repositioning.
[2024-11-21] VITALS (12 sets, daily range): BP systolic 91–122; BP diastolic 58–79
[2024-11-21] MEDS: NON-FORMULARY ITEM 100 MG TUBE ×2 (01:13→13:23)
[2024-11-21] MEDS: MYLICON DROPS 60 MG TUBE ×7 (01:13→20:31)
[2024-11-21] MEDS: ZOSYN 50 IV (04:24)
[2024-11-21] MEDS: PREVACID 30 MG TUBE ×2 (05:49→17:23)
[2024-11-21] MEDS: NON-FORMULARY ITEM 200 MG TUBE ×2 (05:50→17:24)
[2024-11-21] MEDS: NON-FORMULARY ITEM 250 MG TUBE ×2 (06:01→20:30)
[2024-11-21] MEDS: XOPENEX 1.25 MG INHALANT SOLUTION INH ×2 (08:08→20:04)
[2024-11-21] MEDS: DAILY VITAMIN/CENTRUM 15 ML TUBE (08:16)
[2024-11-21] MEDS: DUPHALAC/CHRONULAC 20 GRAMS TUBE ×3 (08:17→21:41)
[2024-11-21] MEDS: ROBITUSSIN 100 MG TUBE ×4 (08:17→21:41)
[2024-11-21] MEDS: VISBIOME 1 CAP TUBE (08:18)
[2024-11-21] MEDS: OSCAL 500 + D 500 MG TUBE (08:18)
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
--- NOTE | 2024-11-21 11:01 | PTCARENOTE ---
Patient remains at baseline neuro status. Dad at bedside. VSS. On 2L NC, sats 95%, will wean as tolerates. NSR on monitor. Tolerating tube feeds. Will closely monitor.
[2024-11-21] MEDS: DULCOLAX RECTAL (16:20)
[2024-11-21] MEDS: MYLICON DROPS TUBE (17:23)
[2024-11-21] MEDS: LOVENOX 40 MG SC (17:23)
[2024-11-21] MEDS: ONFI 10 MG TUBE (17:24)
[2024-11-22] VITALS (12 sets, daily range): BP systolic 95–114; BP diastolic 54–76
[2024-11-22] MEDS: NON-FORMULARY ITEM 100 MG TUBE ×2 (00:12→13:01)
[2024-11-22] MEDS: ZOSYN 50 IV ×2 (00:12→06:02)
[2024-11-22] MEDS: MYLICON DROPS 60 MG TUBE ×8 (00:12→20:10)
[2024-11-22] MEDS: TYLENOL ORAL SOLUTION 650 MG TUBE (00:56)
--- NOTE | 2024-11-22 02:11 | PTCARENOTE ---
Patient remains at baseline neurologic status, nonverbal, mildly contracted. Pt NSR on tele. SpO2 95% on room air. Pt had a low grade temperature 100.2 axillary, and felt warm to the touch mildly diaphoretic. DINESH Gil notified and after viewing
reports decided to cont abx as stated in Dr. Suresh report, Tylenol added PRN. PRN Tylenol administered and ice packs applied to the chest. Lab work ordered for AM as well. Soft BP last BP 95/54. Started a new peripheral IV site to L forearm. R AC
removed as it was leaking. Oral hygiene done frequently. RT placed patient on vest therapy. Oral suctioned patient for small amount of thick white mucus after therapy. Pt tolerating frequent turning and repositioning.
[2024-11-22 05:41] LABS: Ammonia 47 umol/L (9-30); Lactic Acid 0.6 mmol/L (0.7-2.0)
[2024-11-22] MEDS: NON-FORMULARY ITEM 200 MG TUBE ×2 (06:02→17:00)
[2024-11-22] MEDS: PREVACID 30 MG TUBE ×2 (06:02→17:00)
[2024-11-22] MEDS: NON-FORMULARY ITEM 250 MG TUBE ×2 (06:03→18:19)
[2024-11-22] MEDS: XOPENEX 1.25 MG INHALANT SOLUTION INH ×3 (08:10→21:00)
[2024-11-22] MEDS: OSCAL 500 + D 500 MG TUBE (09:17)
[2024-11-22] MEDS: VISBIOME 1 CAP TUBE (09:17)
[2024-11-22] MEDS: ROBITUSSIN 100 MG TUBE ×4 (09:17→20:08)
[2024-11-22] MEDS: DAILY VITAMIN/CENTRUM 15 ML TUBE (09:18)
[2024-11-22] MEDS: DUPHALAC/CHRONULAC 20 GRAMS TUBE (09:18)
--- NOTE | 2024-11-22 10:42 | PTCARENOTE ---
Assumed care of patient this morning. Father in the room this morning, now mother at the bedside. All questions answered per RN ability. Q2T, TF, Percussion schedule, oral care, suctioning, and condom catheter all maintained. Pt has his eyes open
this morning. Assessment, care and VS as charted.
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
[2024-11-22] MEDS: ZOSYN IV (13:29)
[2024-11-22] MEDS: DULCOLAX RECTAL (14:35)
[2024-11-22] MEDS: LOVENOX 40 MG SC (17:00)
[2024-11-22] MEDS: ONFI 10 MG TUBE (17:00)
--- NOTE | 2024-11-22 17:03 | CM ---
Patient with Hx Anoxic encephalopathy/functional quadriplegia, Cerebral palsy, Chronic dysphagia, GJ tube. Room air. Per nurse assessment; drowsy, non-verbal.
Met with patient, mother KathyDr Humphreys & nurse Regina;
mother requesting script for home O2 and home O2 concentrator/portable setup, in case patient needs O2 later.
Dr Humphreys explained to patient's mother that home O2 is not needed and no further O2 testing is needed.
Spoke with [facility];
the patient's O2 concentrator was issued in 2013 and mother paid to own that tank, which they no longer service.
Without a script for O2 showing O2 is needed, they are unable to supply any O2 due to safety risks of supplying O2 that is not medically necessary.
Met with mother again with Selvin Nicholson on speaker phone in patient room;
BROOKE informed the mother that [facility] is unable to provide O2 without MD order for O2.
Lyn explained to the mother that they also cannot provide O2 without O2 script from MD.
Lyn suggested to mother that she could look for purchasing an [employer] POC online such as through [employer].
Kathy was informed by MD that d/c is planned for tomorrow. Provided IMM - mother unwilling to sign at this time but took copy - documented in chart that IMM was provided.
Plan home tomorrow via family van.
--- NOTE | 2024-11-22 23:41 | PTCARENOTE ---
Caring for pt overnight. Nonverbal & very drowsy/lethargic. Per report & mom at bedside this is patients baseline. NSR, remains RA. Q2T. Percussion Q2H. VSS. Tube feeds running at goal with automatic flush, no issues. NPO, all meds through tube. CHG
wipes. Low UO, scanned at beginning of shift 315CC, will monitor. No other issues at this time.
[2024-11-23] VITALS (8 sets, daily range): BP systolic 91–111; BP diastolic 53–65
[2024-11-23] MEDS: MYLICON DROPS 60 MG TUBE ×5 (00:54→12:39)
[2024-11-23] MEDS: NON-FORMULARY ITEM 100 MG TUBE ×3 (00:57→12:38)
[2024-11-23] MEDS: PREVACID 30 MG TUBE (06:12)
[2024-11-23] MEDS: NON-FORMULARY ITEM 200 MG TUBE (06:13)
[2024-11-23] MEDS: XOPENEX 1.25 MG INHALANT SOLUTION INH ×2 (07:30→14:58)
[2024-11-23] MEDS: ROBITUSSIN 100 MG TUBE ×2 (09:18→12:38)
[2024-11-23] MEDS: VISBIOME 1 CAP TUBE (09:19)
[2024-11-23] MEDS: OSCAL 500 + D 500 MG TUBE (09:19)
[2024-11-23] MEDS: DAILY VITAMIN/CENTRUM 15 ML TUBE (09:19)
--- NOTE | 2024-11-23 11:33 | PTCARENOTE ---
Addendum entered by Heather Valencia 11/23/24 13:09:
Pt with large incontinent void. Roselyn care completed. Cloth bath provided and gown changed. Post void scan 107ml. Dr. Humphreys aware.
Original Note:
Pt due for bladder scan. Result of 419. Pt's mother at bedside and educated on bladder scan and cath protocol. Mother very hesitant on cath and states that they very rarely do so at home, but 'it is not unusual for him to have 600-700ml output'
when they do. D/w Dr. Humphreys who states he will D/W pt's mother. Mother updated.
--- NOTE | 2024-11-23 12:52 | W.DS.TRANS ---
DC Summary - [employer]
-
Discharge Instructions:
Discharge Diagnosis/Procedures Pneumonia
Diet Tube feeding
Instructions:
Stand-Alone Forms:
Changes to Home Medications: Yes
Discharge Medications:
DC Medications w/original date entered in [employer]
beclomethasone dipropionate 80 mcg/actuation nasal HFA inhaler (QNASL) 2 spray intranasal DAILY@1900 Congestion ##0 01/04/16
Lactobac no.2-Bifidobac no.1-S. thermophilus 450 billion cell packet (VSL#3) 1 ea J-tube DAILY Supplement 04/18/16
Up-Joe D: Calcium 500 Mg 500 mg J-tube DAILY Supplement 04/18/16
bisacodyl 10 mg rectal suppository (OneLAX Bisacodyl) 10 mg UT DAILY@1500 Constipation 04/18/16
methenamine hippurate 1 gram tablet 1 g J-tube DAILY@0500 Urinary issue 04/18/16
simethicone 40 mg/0.6 mL oral drops,suspension ([place] Gas Relief) 60 mg J-tube Q3H Gastrointestinal issue 04/18/16
Cerovite Liquid 15 ml J-tube DAILY Supplement 02/25/19
brivaracetam 10 mg/mL oral solution (Briviact) 100 mg J-tube BID@0100,1300 Seizures 02/25/19
lansoprazole 30 mg delayed release,disintegrating tablet (Prevacid SoluTab) 30 mg feeding tube BID@0600,1800 Gastrointestinal issue ##0 02/25/19
plecanatide 3 mg tablet (Trulance) 3 mg J-tube DAILY@1500 Gastrointestinal issue 02/25/19
zonisamide 100 mg/5 mL oral suspension 250 mg PO BID@0700,1900 Seizures ##0 02/25/19
midazolam 5 mg/spray (0.1 mL) nasal spray (Nayzilam) 5 mg NS DAILYPRN PRN seizure 05/12/20
simethicone 40 mg/0.6 mL oral drops,suspension ([place] Gas Relief) 40 mg .Route QID Gastrointestinal issue 05/12/20
azelastine 137 mcg (0.1 %) nasal spray 2 spray intranasal BID Congestion 11/11/24
cenobamate 200 mg tablet (Xcopri) 200 mg PO BID@0600,1800 Seizures 11/11/24
clobazam 10 mg tablet (Onfi) 10 mg feeding tube DAILY@1800 Seizures 11/11/24
guar gum 2 tbsp PO TID bowel health 11/11/24
ipratropium bromide 21 mcg (0.03 %) nasal spray 1 spray intranasal BIDPRN PRN nasal issues 11/11/24
levalbuterol HCl 1.25 mg/3 mL solution for nebulization 1.25 mg inhalation R Q8HPRN PRN sob 11/11/24
lorazepam 0.5 mg tablet 0.5 mg PO DAILYPRN PRN seizure 11/11/24
Home Medication Changes
Vimpat discontinued
Pending Results: No
--- NOTE | 2024-11-23 14:25 | CM ---
Patient with Hx Anoxic encephalopathy/functional quadriplegia, Cerebral palsy, Chronic dysphagia, GJ tube. Room air. Per nurse assessment; drowsy, non-verbal.
Spoke with Lashell Ulrich, Clinical Refuse Collector [facility] Office (cell [phone], fax [phone]); she was informed about d/c today and requested fax of d/c information. Lashell stated she is able to staff caregivers to resume
today.
Spoke with Kathy, patient's mother; she feels ready to take her son home today. IMM completed yesterday. Both parents were here today and plan is for transport home via their vehicle.
Plan home with resumption [facility] caregivers, with family via their van.
--- NOTE | 2024-11-23 14:43 | PTCARENOTE ---
PT for dc home. IV and monitor equipment removed. Home medications returned to parents (Zonisamide, Briviact, Xcopri, Onfi, Vimpat). D/c paperwork reviewed with family. Hoyered into home WC. D/c off unit with parents.
== END 2024-11-23 15:04 | disposition home or self-care (01) | DRG 871 ==
LOC: IMU 22:10
PROVIDERS: Internal Medicine; Registered Nurse; ADMITTING PHYSICIAN Internal Medicine; ATTENDING PHYSICIAN Internal Medicine; CONSULT PHYSICIAN Internal Medicine; CONSULT PHYSICIAN Psychiatry & Neurology Neurology; EMERGENCY PHYSICIAN Emergency Medicine; FAMILY PHYSICIAN Family Medicine
DX: A41.9 Sepsis, unspecified organism (principal); G92.8 Other toxic encephalopathy; J96.01 Acute respiratory failure with hypoxia; J69.0 Pneumonitis due to inhalation of food and vomit; R53.2 Functional quadriplegia; G93.1 Anoxic brain damage, not elsewhere classified; G40.919 Epilepsy, unspecified, intractable, without status epilepticus; E72.20 Disorder of urea cycle metabolism, unspecified; K31.84 Gastroparesis; R13.10 Dysphagia, unspecified; Z93.4 Other artificial openings of gastrointestinal tract status; M41.9 Scoliosis, unspecified; K59.09 Other constipation; Z87.01 Personal history of pneumonia (recurrent); G80.9 Cerebral palsy, unspecified; K21.9 Gastro-esophageal reflux disease without esophagitis; E87.6 Hypokalemia; G89.29 Other chronic pain; M85.80 Other specified disorders of bone density and structure, unspecified site; Z79.899 Other long term (current) drug therapy; Z87.440 Personal history of urinary (tract) infections; Z99.3 Dependence on wheelchair; Z88.6 Allergy status to analgesic agent; Z11.52 Encounter for screening for COVID-19
CPT/HCPCS: 70450; 71045; 71046; 76700; 80048; 80053; 81003; 81015; 82140; 82550; 82805; 83605; 84145; 85025; 85027; 85379; 85610; 85730; 87040; 87086; 87502; 87641; 87811; 93005; 93970; 94640; 94668; 94669; 95816; 96361; 96374; 99285

== ENCOUNTER → 2025-01-28 10:31 | Outpatient (REF) | payer MEDICARE, OTHER, MEDICAID, SELFPAY ==
[2025-01-28 11:00] VITALS: BP 120/73; BP_SYST 62
== END ==
LOC: RADI 10:31
PROVIDERS: ATTENDING PHYSICIAN Radiology Vascular & Interventional Radiology
DX: Z43.1 Encounter for attention to gastrostomy (principal)
CPT/HCPCS: 49452

== ENCOUNTER → 2025-02-14 12:31 | Outpatient (REF) | payer MEDICARE, OTHER, MEDICAID, SELFPAY ==
[2025-02-14 13:30] LABS: Hematocrit 47.7 % (39.0-52.0); Hemoglobin 15.8 g/dL (13.0-18.0); Mean Corp Hgb Conc. 33.1 g/dL (33.0-37.0); Mean Corpuscular Hgb 30.3 pg (27.0-31.0); Mean Corpuscular Volume 91.4 fL (80.0-94.0); Mean Platelet Volume 9.7 fL (7.4-10.4); Platelet Count 213 10^3/uL (130-400); Red Blood Cell Count 5.22 10^6/uL (4.70-6.10); Red Cell Dist. Width 13.3 % (11.5-14.5); White Blood Cell Count 5.4 10^3/uL (4.8-10.8)
[2025-02-14 14:18] LABS: ALT (SGPT) 74 U/L (0-50); AST (SGOT) 37 U/L (17-59); Alkaline Phosphatase 116 U/L (38-126); Blood Urea Nitrogen 13 mg/dl (9-20); Carbon Dioxide 22 mmol/L (22-30); Chloride 112 mmol/L (98-107); Glucose 105 mg/dl (70-99); Potassium 4.1 mmol/L (3.5-5.1); Sodium 145 mmol/L (135-145); Total Bilirubin 0.3 mg/dl (0.2-1.3); Total Protein 7.6 g/dl (6.3-8.2); eGFR > 60.00
== END ==
LOC: REG 12:31
PROVIDERS: ATTENDING PHYSICIAN Student in an Organized Health Care Education/Training Program; FAMILY PHYSICIAN Family Medicine
DX: N39.0 Urinary tract infection, site not specified (principal)
CPT/HCPCS: 36415; 80053; 85027

== ENCOUNTER → 2025-08-10 11:57 | Outpatient (REF) | payer MEDICARE, OTHER, MEDICAID, SELFPAY ==
[2025-08-10 14:01] LABS: ALT (SGPT) 117 U/L (0-50); AST (SGOT) 55 U/L (17-59); Albumin 4.8 g/dl (3.5-5.0); Alkaline Phosphatase 91 U/L (38-126); Blood Urea Nitrogen 14 mg/dl (9-20); Calcium 9.0 mg/dl (8.4-10.2); Carbon Dioxide 29 mmol/L (22-30); Chloride 104 mmol/L (98-107); Glucose 76 mg/dl (70-99); Magnesium 2.2 mg/dl (1.6-2.3); Potassium 4.7 mmol/L (3.5-5.1); Sodium 137 mmol/L (135-145); Total Protein 7.5 g/dl (6.3-8.2); eGFR > 60.00
[2025-08-10 14:28] LABS: TSH 1.12 uIU/ml (0.47-4.68)
== END ==
LOC: REG 11:57
PROVIDERS: ATTENDING PHYSICIAN Family Medicine
DX: G40.89 Other seizures (principal); N20.0 Calculus of kidney; N39.0 Urinary tract infection, site not specified; R53.2 Functional quadriplegia
CPT/HCPCS: 36415; 80053; 83735; 84443

== ENCOUNTER → 2025-08-15 06:05 | Outpatient (REF) | payer MEDICARE, OTHER, MEDICAID, SELFPAY ==
[2025-08-15 16:28] LABS: Urine Character Slightly Cloudy (Clear)
[2025-08-15 16:38] LABS: Urine Red Blood Cell 0-2 /HPF (0-2); Urine Squamous Cell 0-2 /LPF (Few)
[2025-08-15 16:39] LABS: Urine White Cell 0-2 /HPF (0-5)
== END ==
LOC: REG 06:05
PROVIDERS: ATTENDING PHYSICIAN Family Medicine
DX: G40.89 Other seizures (principal); N20.0 Calculus of kidney; N39.0 Urinary tract infection, site not specified
CPT/HCPCS: 81003; 81015; 87086

== ENCOUNTER 2025-08-17 13:36 | Emergency (ER) | payer MEDICARE, OTHER, MEDICAID, SELFPAY ==
[2025-08-17] VITALS (9 sets, daily range): BP systolic 114–134; BP diastolic 63–84; BMI 24.9
--- NOTE | 2025-08-17 15:27 | ED.GENMED ---
History of Present Illness
General
Chief Complaint: Seizure
Source: family
Exam Limitations: none
Time Seen by Provider: 08/17/25 15:08
Nursing documentation reviewed up to this point in time: agreed with
History of Present Illness
History of Present Illness:
Note:
CHIEF COMPLAINT(S)
Worsening episodes of seizure-like activity.
HISTORY OF PRESENT ILLNESS
The patient is a 35-year-old male with established neurological issues who experiences frequent seizures. According to the patients caregiver, the patient has been experiencing a new pattern of seizure-like activity since approximately 6 to 7 PM the
previous evening. The episodes start with tremors in both lower extremities and can progress to involve the upper extremities. Each episode lasts between three to eight seconds, sometimes longer or shorter. These episodes are different from his
usual seizures as described by the caregiver, characterized by more violent leg and arm movements. The patient normally has up to six to eight seizures a day, but this new activity, reported as lacking oxygen loss during episodes, differs
significantly enough to warrant concern.
The patient is nonverbal, non-ambulatory, and dependent on care. He is fed via a J-tube and does not take anything orally. There has been no vomiting or diarrhea. The caregiver reports he is sometimes retaining urine due to somnolence from
medications, although he urinated before coming to the ER.
The patients neurologist advised bringing him to the ER for evaluation following worsening symptoms despite ongoing titration of his essential medications. The caregiver considered administering intranasal diazepam, usually reserved for severe
rescue situations, but was advised to seek immediate evaluation instead. The patient has been treated by a neurologist at [place] for the past 15 years.
EXTERNAL RECORDS REVIEWED
The patient has longstanding neurological care under a neurologist at [facility], beginning after a previous negative experience in [facility].
PHYSICAL EXAM
General: Nonverbal, does not follow commands.
Respiratory: Oxygen saturation at 95% on room air.
Neurological: Seizure-like activity observed.
Gastrointestinal: Percutaneous endoscopic jejunostomy tube in place.
Vital Signs: Afebrile, oxygen saturation at 95% on room air.
PLAN
The plan is to evaluate the new seizure-like activity, coordinating care with the patients neurologist for further management. The patients current medications and potential adjustments will be reviewed based on assessment findings.
DIFFERENTIAL DIAGNOSIS
The Differential Diagnosis includes, in no particular order and is not limited to:
1. Status epilepticus
2. Myoclonic epilepsy
3. Complex partial seizures
4. Generalized tonic-clonic seizures
5. Seizure disorder exacerbation
6. Medication adjustment or side effect
7. Non-convulsive status epilepticus
8. Electrolyte imbalance
9. Metabolic disturbance
10. Neurological disorder progression
CARE-UPDATE
08/17/25 - 19:[address] Sharma and discussing with Dr. Christie, it is recommended to increase Breviac to 200 mg at night. Plan for an inpatient admission at [facility] for further evaluation and management in the near future. Occasional seizure
activity noted with Cerebell, but the patient is not in status epilepticus.
Disposition:
SUMMARY OF ENCOUNTER
The patient, a 35-year-old male with a history of neurological issues and frequent seizures, was seen in the emergency department due to worsening episodes of seizure-like activity. These episodes began the previous evening and involved tremors in
the lower extremities extending to the upper extremities, differing from his typical seizures by more pronounced movements but with no oxygen loss. A neurologist advised bringing the patient for evaluation after symptoms worsened despite medication.
There is no indication of current status epilepticus. The plan includes increasing the nighttime dose of breviracetam to 200 mg.
DISPOSITION
Discharge with follow-up plans for inpatient admission at [facility] for further monitoring.
ASSESSMENT
The patient is experiencing exacerbation of seizure-like activity, without signs of status epilepticus.
MANAGEMENT OF THE PATIENTS CARE WAS DISCUSSED WITH
Consultation and recommendations were made through discussions with Dr. Sharma and Dr. Christie.
PLAN
Increase breviracetam to 100 mg in the morning and 200 mg at night. Discharge with a follow-up at [facility] for inpatient admission and further monitoring of seizure activity.
PATIENT EDUCATION AND COUNSELING
The caregiver was provided with return precautions and instructed on signs to monitor. Emphasized the importance of the follow-up with neurology at [facility].
FOLLOW-UP INSTRUCTIONS
Plan for follow-up with neurology at [facility] regarding inpatient admission for further monitoring.
MEDICATION RECONCILIATION
Prescription for breviracetam increased to 100 mg in the morning and 200 mg at night.
MEDICAL DECISION MAKING
- Number and Complexity of Problems Addressed: Chronic conditions affecting care include frequent seizures and neurological issues. Differential diagnosis includes potential seizure disorder exacerbation and the need for medication adjustment.
- Data:
- Category 1:
- External records reviewed: The patients neurological care history from [facility].
- Category 2:
- Input from the caregiver served as an independent historian, enriching the understanding of the current episodes.
- Category 3:
- Discussion of management with neurologists Dr. Sharma and Dr. Christie.
- Risk: Prescription medication was prescribed with an increased dose of breviracetam. Given the exacerbation of seizure-like activity, a follow-up was arranged for inpatient evaluation at [facility].
DIAGNOSIS
Exacerbation of seizure disorder without status epilepticus (ICD-10: G40.909).
Past History
Past History
ED Past Medical History: GERD, Seizures and Other (cerebral palsy, ambulatory dysfunction, anoxic encephalopathy, pneumonia, quadraplegic. Gastroparesis, UTI's, Aspiration Pneumonia)
ED Past Surgical History: Orthopedic and Other (GJ-tube placement for feeding, intrathecal pump, and a moe in the spine.)
Social History
Tobacco: Non-smoker
Alcohol: None
Drug: None
Personal: Single
Living: with family
Employment: Disabled
Family History
Family History: Other (reviewed and non-contributory)
Phy Exam
Physical Exam
Physical Exam:
.
Course
Orders/Labs/Results
Orders:
Orders
08/17/25 15:20
IV Insert/Care/Rem.- Treatment PRN
08/17/25 15:25
Complete Blood Count/With Diff Urgent
Comprehensive Metabolic Panel Urgent
08/17/25 15:26
Ceribell [Rapid Point of Care EEG (ED/ICU ONLY)] Q1H
Indications for use:: History of Epilepsy
Abnormal Lab Results
08/17/25
15:25
Monocytes % 10.4 H %
(1.7-9.3)
Creatinine 0.4 L mg/dL
(0.7-1.3)
ALT 105 H U/L
(0-50)
08/17/25 15:25
08/17/25 15:25
Vital Signs
Initial and Last Documented VS:
Initial Vital Signs
Temp Pulse Resp BP Pulse Ox
98.2 F 79 16 128/81 95
08/17/25 13:45 08/17/25 13:45 08/17/25 13:45 08/17/25 13:45 08/17/25 13:45
Last Documented Vital Signs
Temp Pulse Resp BP Pulse Ox
98.2 F 70 15 121/72 96
08/17/25 13:45 08/17/25 19:15 08/17/25 19:15 08/17/25 19:00 08/17/25 19:15
*Pulse Oximetry
SaO2: 95
Oxygen Mode of Delivery: Room air
Patient hypoxic: no
*Critical Care Note
Total Time (30-74mins, 75-104mins- exclusive of procedures): Not Applicable
ED Attending Note
-
Portions of this chart may have been created with voice recognition software.� Occasional wrong word or��sound alike� substitutions may have occurred due to the inherent limitations of voice recognition software.
Discharge Plan
Departure
Patient Disposition: Home (Routine Discharge)
Date of Disposition: 08/17/25
Time of Disposition: 19:04
Patient with high blood pressure during this ER visit?: Yes
Condition: Fair
Discharge Problem:
Seizures
Instructions: Seizures, Adult (DC), BLOOD PRESSURE
Prescriptions:
No Action
QNASL 80 mcg/actuation Hfa Aerosol Inhaler
2 spray INTRANASAL DAILY@1900 Qty: 0
Patient Comments:
02/25/19:must be sitting up
VSL#3 1 EACH powder in packet
1 ea J-tube DAILY
Patient Comments:
02/25/19: mix in 90 mL of water; give 1/2 with 15 mL flush; give balance of VSL with 15 mL flush
methenamine hippurate 1 GRAM tablet
1 g J-tube DAILY@0500
bisacodyl [OneLAX Bisacodyl] 10 MG suppository
10 mg UT DAILY@1500
Up-Joe D: Calcium 500 Mg
500 mg J-tube DAILY
simethicone [[place] Gas Relief] 40 MG/0.6 ML drops,suspension
60 mg J-tube Q3H
Patient Comments:
starting at 0000
lansoprazole [Prevacid SoluTab] 30 mg Tablet,Disintegrat, Delay Rel
30 mg feeding tube BID@0600,1800 Qty: 0
Briviact 10 MG/ML solution
100 mg J-tube BID@0100,1300
Trulance 3 MG tablet
3 mg J-tube DAILY@1500
Cerovite Liquid
15 ml J-tube DAILY
zonisamide 100 mg/5 mL Suspension
250 mg PO BID@0700,1900 Qty: 0
simethicone [[place] Gas Relief] 40 MG/0.6 ML drops,suspension
40 mg .Route QID
Patient Comments:
05/12/2020: Pt recieves 40mg in his GTUBE QID, along with 60mg in his JTUBE Q3H
Nayzilam 5 MG/0.1 ML spray,non-aerosol
5 mg NS DAILYPRN PRN (Reason: seizure)
Patient Comments:
05/12/20: directions, for seizures for 5 mins then repeat after 10 mins if continues
guar gum Packet
2 tbsp PO TID
lorazepam 0.5 mg Tablet
0.5 mg PO DAILYPRN PRN (Reason: seizure)
azelastine 137 mcg (0.1 %) [place],Non-Aerosol
2 spray INTRANASAL BID
ipratropium bromide 21 mcg (0.03 %) [place],Non-Aerosol
1 spray INTRANASAL BIDPRN PRN (Reason: nasal issues)
clobazam [Onfi] 10 mg Tablet
10 mg feeding tube DAILY@1800
Xcopri 200 mg Tablet
200 mg PO BID@0600,1800
levalbuterol HCl 1.25 mg/3 mL Solution For Nebulization
1.25 mg INHALATION R Q8HPRN PRN (Reason: sob) Qty: 90 2RF
Referrals:
Silverio Walsh MD [Family Provider, Family Practice]
Activity Restrictions/Additional Instructions:
Increase Briviact to 100 mg at 1 AM and 200 mg at 1 PM. Follow-up with neurology to set up admission at [facility] return for any concerns.
Interventions
Interventions:
*Risk Screen - Suicide Last Done: 08/17/25 13:45
*General Assessment Last Done: 08/17/25 13:45
*Neglect/Abuse Screening Last Done: 08/17/25 14:42
*ED COVID-19 Vaccine History Last Done: 08/17/25 13:45
*ED Influenza Vaccine History Last Done: 08/17/25 13:45
[facility] Fall Risk Assessment Tool Last Done: 08/17/25 13:37
*Nursing Disposition Last Done: 08/17/25 19:52
ED- Cardiac Assessment Last Done: 08/17/25 14:42
ED- Neurological Assessment Last Done: 08/17/25 14:42
ED- Pulmonary Assessment Last Done: 08/17/25 14:42
Discharge Date and Time
Discharge Date/Time: 08/17/25 19:52
Print Language: MALAY
[2025-08-17 15:33] LABS: Hematocrit 46.6 % (39.0-52.0); Hemoglobin 15.4 g/dL (13.0-18.0); Mean Corp Hgb Conc. 33.0 g/dL (33.0-37.0); Mean Corpuscular Volume 89.3 fL (80.0-94.0); Nucleated Red Blood Cells % 0 % (-); Platelet Count 229 10^3/uL (130-400); Red Cell Dist. Width 13.2 % (11.5-14.5)
[2025-08-17 15:44] LABS: ALT (SGPT) 105 U/L (0-50); AST (SGOT) 48 U/L (17-59); Albumin 4.7 g/dl (3.5-5.0); Alkaline Phosphatase 83 U/L (38-126); Blood Urea Nitrogen 15 mg/dl (9-20); Calcium 9.0 mg/dl (8.4-10.2); Carbon Dioxide 29 mmol/L (22-30); Chloride 105 mmol/L (98-107); Estimated Creatinine Clearance > 125 ml/min; Glucose 98 mg/dl (70-99); Potassium 4.3 mmol/L (3.5-5.1); Sodium 138 mmol/L (135-145); Total Protein 7.4 g/dl (6.3-8.2); eGFR > 60.00
--- NOTE | 2025-08-18 07:29 | W.RAPID.EEG ---
Rapid EEG
-
Procedure Date: 08/17/25
Patient Status: Emergency Room
Results:
IMPRESSION:
Brief continuous seizure activity consistent with status epilepticus which was completely resolved by the end of the study
Patient was awake and drowsy.
Recording Information:
Diagnostic Recording Time: 01:54:01 (114 minutes)
Recording 1: [email or web address]
Start Time: Aug 17, 2025 15:46 PM End Time: Aug 17, 2025 17:40 PM
Recording Technique: This EEG was obtained using a 10 lead, 8 channel system positioned circumferentially without any parasagittal coverage (rapid EEG). Computer selected EEG is reviewed as well as background features and all clinically significant
events. Clarity algorithm utilized and implemented to provide analysis of underlying activity and seizure detection used to facilitate reading. ICD-10 Code MB05F14
Clinical History: TOMER WALLER is a 35 year old Other, Other: SEIZURE patient undergoing EEG to screen for non-convulsive status epilepticus.
== END 2025-08-17 19:52 | disposition home or self-care (01) ==
LOC: EMR 13:36
PROVIDERS: EMERGENCY PHYSICIAN Emergency Medicine; FAMILY PHYSICIAN Family Medicine
DX: G40.909 Epilepsy, unspecified, not intractable, without status epilepticus (principal); G80.8 Other cerebral palsy; G93.1 Anoxic brain damage, not elsewhere classified; Z93.4 Other artificial openings of gastrointestinal tract status
CPT/HCPCS: 99284; 80053; 85025; 95813